=== PATIENT | female | born 1970 | race Hispanic/Latino ===

== ENCOUNTER 2019-10-11 13:33 | Emergency (ER) | payer OTHER ==
[2019-10-11] MEDS ORDERED: Acetaminophen 500 MG TAB ONE (13:50)
[2019-10-13 12:17] LABS: SARS-CoV-2 MS2 Positive; SARS-CoV-2 N Gene Positive; SARS-CoV-2 S Gene Positive; SARS-CoV-2 orf1ab Positive
== END 2019-10-11 14:30 | disposition home or self-care (01) ==
LOC: BURERS 13:33
DX: U07.1 COVID-19 (principal); J06.9 Acute upper respiratory infection, unspecified
CPT/HCPCS: 87635; 87804; U0003

== ENCOUNTER 2020-06-26 08:56 | Emergency (ER) | payer OTHER ==
[2020-06-26] MEDS ORDERED: Morphine 4 MG/ML VIAL ONE ×2 (08:59→09:10)
[2020-06-26] MEDS ORDERED: diphenhydrAMINE 50 MG/ML VIAL ONE (09:00)
[2020-06-26] MEDS ORDERED: CEFAZOLIN 1 GM VIAL ONE (09:10)
[2020-06-26] MEDS ORDERED: Sodium Chloride 0.9% 100 ML ONE (09:10)
[2020-06-26] MEDS ORDERED: Lidocaine 1% PF 5 ML VIAL ONE ×2 (09:14)
[2020-06-26 09:31] LABS: #Basophils 0.1 thou/uL (0.0-0.2); #Eosinphils 0.1 thou/uL (0.0-0.7); #Lymphocytes 3.2 thou/uL (1.20-3.40); #Monocytes 0.7 thou/uL (0.11-0.59); #Neutrophils 3.6 thou/uL (1.40-6.50); %Basophils 1.8 % (0.0-1.0); %Eosinophils 1.4 % (0.0-10.0); %Monocytes 9.5 % (0.0-10.0); %Neutrophils 46.3 % (42.0-75.0); Hemoglobin 15.2 g/dL (12.0-16.0); Mean Corpuscular HGB CONC 33.8 g/dL (32.0-36.0); Mean Corpuscular Hemoglobin 32.2 pg (27.0-31.0); Mean Corpuscular Volume 95.2 fL (78.0-98.0); Mean Platelet Volume 8.1 fL (7.4-10.4); Platelet Count 290 thou/uL (130-400); RBC Distribution Width 11.8 % (11.5-14.5); Red Blood Cell (RBC) Count 4.71 mill/uL (4.20-5.40); White Blood Cell (WBC) Count 7.7 thou/uL (4.8-10.8)
[2020-06-26 09:45] LABS: ALT (SGPT) 51 U/L (8-55); AST (SGOT) 29 U/L (5-34); Albumin 4.4 g/dL (3.5-5.0); Alkaline Phosphatase 66 U/L (40-110); Anion Gap 14 mmol/L (10-20); BUN (Urea Nitrogen) 15 mg/dL (7.0-18.7); Bilirubin, Total 0.5 mg/dL (0.2-1.2); Calc. Creatinine Clearance 0 mL/min (70-130); Calcium 9.4 mg/dL (7.8-10.44); Carbon Dioxide 26 mmol/L (22-29); Chloride 106 mmol/L (98-107); Globulin 3.2 g/dL (2.4-3.5); Glucose 133 mg/dL (70-105); Potassium 3.9 mmol/L (3.5-5.1); Protein, Total 7.6 g/dL (6.0-8.3); Sodium 142 mmol/L (136-145)
== END 2020-06-26 10:15 | disposition short-term general hospital (02) ==
LOC: BURERS 08:56
DX: S61.237A Puncture wound without foreign body of left little finger without damage to nail, initial encounter (principal); W34.00XA Accidental discharge from unspecified firearms or gun, initial encounter
CPT/HCPCS: 36415; 64450; 80053; 85025; 94760; 96365; 96375; J0690; J1200; J2270; J3490